=== PATIENT | male | born 1955 ===

== ENCOUNTER 2017-02-13 04:05 | Emergency (ER) | payer OTHER ==
[2017-02-13 04:17] VITALS: BMI 32.3
[2017-02-13 04:21] VITALS: BP 170/87; PULSE 58; RESP 16; TEMP 97.8; O2SAT 90
--- NOTE | 2017-02-13 05:45 | ED PDOC ---
HPI: Back Time Seen by Provider: 02/13/17 04:38 Chief Complaint (Nursing): Back Pain Chief Complaint (Provider): Back Pain History Per: Patient History/Exam Limitations: no limitations Onset/Duration Of Symptoms: Days (x2) Current Symptoms Are (Timing): Still Present Associated Symptoms: None Exacerbating Factor(s): Movement, Other (bending or walking) Additional Complaint(s): 61 year old male presents to ED with complaints of atraumatic back pain x2 days and has a past medical history of HTN. 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 Patient notes having back pain in the past. Confirms that the pain is exacerbated with movement, bending, or walking. (-) chest pain, SOB, nausea, vomiting, or diaphoresis. PCP: Derba - Risk Factors AAA Risk Factors: Pos: Hypertension Past Medical History Reviewed: Historical Data, Nursing Documentation, Vital Signs Vital Signs: Last Vital Signs Temp 97.8 F 02/13/17 04:17 Pulse 58 L 02/13/17 04:17 Resp 16 02/13/17 04:17 BP 170/87 H 02/13/17 04:17 Pulse Ox 90 L 02/13/17 04:17 - Medical History PMH: HTN - Family History Family History: States: No Known Family Hx - Social History Current smoker - smoking cessation education provided: No Ex-Smoker (has not smoked in the last 12 months): No Alcohol: None Drugs: Denies - Home Medications Home Medications: Ambulatory Orders Medication Instructions Recorded Cyclobenzaprine [Cyclobenzaprine 10 mg PO TID PRN #15 tab 02/13/17 HCl] - Allergies Allergies/Adverse Reactions: Allergies Allergy/AdvReac Type Severity Reaction Status Date / Time No Known Allergies Allergy Verified 02/13/17 04:17 Review of Systems ROS Statement: Except As Marked, All Systems Reviewed And Found Negative Constitutional: Negative for: Sweats Respiratory: Negative for: Shortness of Breath Gastrointestinal: Negative for: Nausea, Vomiting Musculoskeletal: Positive for: Back Pain Physical Exam - Reviewed Nursing Documentation Reviewed: Yes Vital Signs Reviewed: Yes - Physical Exam Appears: Positive for: Non-toxic, No Acute Distress Head Exam: Positive for: ATRAUMATIC, NORMOCEPHALIC Skin: Positive for: Normal Color, Warm, Dry Eye Exam: Positive for: Normal appearance Cardiovascular/Chest: Positive for: Regular Rate, Rhythm. Negative for: Murmur Respiratory: Positive for: Normal Breath Sounds. Negative for: Respiratory Distress Gastrointestinal/Abdominal: Positive for: Normal Exam Back: Positive for: Other (noted slight asymmetry of shoulder) Extremity: Positive for: Normal ROM. Negative for: Deformity Neurologic/Psych: Positive for: Alert, Oriented. Negative for: Motor/Sensory Deficits - ECG O2 Sat by Pulse Oximetry: 90 (RA) Pulse Ox Interpretation: Abnormal Medical Decision Making Medical Decision Makin Initial impression: musculoskeletal back pain and muscular spasm Initial plan: * CT THORACIC SPINE * Flexeril 10mg PO * Toradol 30mg IM * Re-eval 06 CT FINDINGS Vertebrae: No acute fracture. Anterior lateral osteophytes. Discs/spinal canal/neural foramina: [id number] degenerative disc disease within mid thoracic spine. Early degenerative disc disease within lower thoracic spine. Mild disc herniations within mid and lower thoracic spine, suboptimally evaluated. Mild neuroforaminal narrowing with mid thoracic spine. Soft tissues: Unremarkable. Vasculature: Mild atherosclerotic disease. Lungs: Mild emphysematous changes. Mild mosaic pattern of lung parenchyma, nonspecific. Minimal atelectasis/scarring. Heart: Cardiomegaly. Kidneys and ureters: Probable LEFT renal cyst. IMPRESSION: 1. No fracture. 2. If back pain persists, consider MRI for further evaluation. 3. Incidental/non-acute findings are described above. Patient reports improvement in symptoms and is stable on discharge Dx Back Strain/Spasm Scribe Attestation: Documented by Mar Grullon acting as a scribe for Yohannes Castano MD. Scribe Attestation: All medical record entries made by the Scribe were at my direction and personally dictated by me. I have reviewed the chart and agree that the record accurately reflects my personal performance of the history, physical exam, medical decision making, and the department course for this patient. I have also personally directed, reviewed, and agree with the discharge instructions and disposition. Disposition - Clinical Impression Clinical Impression: Strain of mid-back, Spasm of back muscles - Disposition Disposition: Routine/Home Disposition Time: 06:00 Condition: STABLE Prescriptions: Cyclobenzaprine [Cyclobenzaprine HCl] 10 mg PO TID PRN #15 tab PRN Reason: Muscle Pain Instructions: Muscle Spasm (ED) Forms: [employer] (I[place]ic)
--- NOTE | 2017-02-13 06:13 | CT ---
EXAM: CT Thoracic Spine Without Intravenous Contrast CLINICAL HISTORY: 61 years old, male; Pain; Pain in thoracic spine; Additional info: Back pain TECHNIQUE: Axial computed tomography images of the thoracic spine without intravenous contrast. All CT scans at this facility use one or more dose reduction techniques, viz.: automated exposure control; ma/kV adjustment per patient size (including targeted exams where dose is matched to indication; i.e. head); or iterative reconstruction technique. Coronal and sagittal reformatted images were created and reviewed. COMPARISON: No relevant prior studies available. FINDINGS: Vertebrae: No acute fracture. Anterior lateral osteophytes. Discs/spinal canal/neural foramina: [id number] degenerative disc disease within mid thoracic spine. Early degenerative disc disease within lower thoracic spine. Mild disc herniations within mid and lower thoracic spine, suboptimally evaluated. Mild neuroforaminal narrowing with mid thoracic spine. Soft tissues: Unremarkable. Vasculature: Mild atherosclerotic disease. Lungs: Mild emphysematous changes. Mild mosaic pattern of lung parenchyma, nonspecific. Minimal atelectasis/scarring. Heart: Cardiomegaly. Kidneys and ureters: Probable LEFT renal cyst. IMPRESSION: 1. No fracture. 2. If back pain persists, consider MRI for further evaluation. 3. Incidental/non-acute findings are described above.
== END 2017-02-13 06:31 | disposition home or self-care (01) ==
LOC: H.ER 04:05
DX: S39.012A Strain of muscle, fascia and tendon of lower back, initial encounter (principal); I10 Essential (primary) hypertension; Z87.891 Personal history of nicotine dependence; M51.34 Other intervertebral disc degeneration, thoracic region
CPT/HCPCS: 72128; 96372; 99282; J1885